=== PATIENT | female | born 1970 | race Caucasian/White ===

== ENCOUNTER 2017-05-15 21:25 | Emergency (ER) | payer OTHER ==
[~2017-05-15] VITALS: Ht 160 cm; Wt 119.8 kg
[~2017-05-15 21:25] MED LIST: BIRTH CONTROL PILL PO; HYCODAN SYRUP480 ML PO; LISINOPRIL10 MG PO; LORATADINE10 M2 PO; PREDNISONE20 MG PO; VENTOLIN HFA18 GM IH; VITAMIN C500 M1 PO; VITAMIN D31000 UNI2 PO; ZITHROMAX Z-PA250 MG PO
[2017-05-16] MEDS ORDERED: NORCO 7.5/321 TABLET PO (00:01)
[2017-05-16] MEDS ORDERED: MOTRIN800 MG PO (00:01)
[2017-05-16] MEDS ORDERED: VALIUM5 MG PO (00:01)
[2017-05-16 00:25] VITALS: BP 142/98
== END 2017-05-16 00:26 | disposition home or self-care (01) ==
LOC: RME 21:25 → EME 21:25 → RME 05-16 00:26
DX: M23.92 Unspecified internal derangement of left knee (principal); M54.5 Low back pain; G89.29 Other chronic pain; S46.919A Strain of unspecified muscle, fascia and tendon at shoulder and upper arm level, unspecified arm, initial encounter; W18.30XA Fall on same level, unspecified, initial encounter; Y93.54 Activity, bowling; Y92.39 Other specified sports and athletic area as the place of occurrence of the external cause; Z87.891 Personal history of nicotine dependence
CPT/HCPCS: 73564; 99281; 99283

== ENCOUNTER 2017-07-15 05:03 | Inpatient (IN) | payer OTHER ==
[~2017-07-15] VITALS: Ht 160 cm; Wt 120.6 kg
[~2017-07-15 05:03] MED LIST changes: -BIRTH CONTROL PILL PO; +MOTRIN800 MG PO; +NORCO 7.5/321 TABLET PO; +TAYTULLA 1 MG-1 EACH PO; +VALIUM5 MG PO
[2017-07-15 05:56] LABS: MCHC 33.7 G/DL (30.0-36.0); MCV 89.1 FL (83-99); MEAN PLAT.VOLUME 9.9 uM^3 (9.5-12.4); PLATELET COUNT 237 K/uL (156-360); RBC DIS.WIDTH-CV 12.1 % (11.8-14.6); RBC DIS.WIDTH-SD 39.3 % (39-53); WHITE BLOOD COUNT 10.7 K/uL (4.1-10.2)
[2017-07-15] MEDS ORDERED: NORCO 5/3251 TABLET PO (06:09)
[2017-07-15] MEDS ORDERED: CLEOCIN300 MG PO (06:09)
[2017-07-15 06:11] LABS: CHLORIDE 108 mEq/L (99-109); POTASSIUM 4.1 mEq/L (3.7-5.4); SODIUM 140 mEq/L (136-147)
[2017-07-15 06:13] LABS: GLUCOSE 106 mg/dL (70-99)
[2017-07-15 06:14] LABS: ANION GAP 9 MEQ/L (2-14)
[2017-07-15 06:17] LABS: GFR ESTIMATE (CALCULATED) > 59 mL/min/
[2017-07-15 06:18] LABS: UREA NITROGEN (BUN) 10 mg/dL (9-23)
[2017-07-15] MEDS ORDERED: IBUPROFEN200 M1 PO (09:18)
[2017-07-15] MEDS ORDERED: TYLENOL EXTRA500 MG PO ×2 (09:19→09:52)
[2017-07-15] MEDS ORDERED: AMLODIPINE-VAL1 EAC2 PO ×2 (09:26→09:51)
[2017-07-15] MEDS ORDERED: FLONASE16 G1 BOTH NARES (09:52)
[2017-07-15 16:31] VITALS: BP 114/70
[2017-07-16 00:26] VITALS: BP 117/68
[2017-07-16 05:53] LABS: MCH 29.4 PG (29.0-34.0); MCHC 32.8 G/DL (30.0-36.0); MCV 89.8 FL (83-99); MEAN PLAT.VOLUME 10.1 uM^3 (9.5-12.4); PLATELET COUNT 218 K/uL (156-360); RBC DIS.WIDTH-CV 12.1 % (11.8-14.6); RED BLOOD COUNT 4.01 M/uL (3.80-5.20); WHITE BLOOD COUNT 9.6 K/uL (4.1-10.2)
[2017-07-16 06:38] LABS: ANION GAP 7 MEQ/L (2-14); CHLORIDE 106 MEQ/L (99-109); GFR ESTIMATE (CALCULATED) > 59 mL/min/; GLUCOSE 89 mg/dL (70-99); POTASSIUM 4.2 MEQ/L (3.7-5.4); SAMPLE HEMOLYSIS CHECK 0; SAMPLE ICTERIC CHECK 0; SAMPLE LIPEMIA CHECK 0; SODIUM 141 MEQ/L (136-147); UREA NITROGEN (BUN) 8 mg/dL (9-23)
[2017-07-16 07:55] VITALS: BP 152/80
[2017-07-16 15:52] VITALS: BP 132/74
[2017-07-16 23:53] VITALS: BP 120/56
[2017-07-17 07:39] VITALS: BP 131/84
[2017-07-17] MEDS ORDERED: ACIDOPHILUS LA1 EACH PO (09:57)
[2017-07-17] MEDS ORDERED: VALSARTAN160 MG PO (10:00)
[2017-07-17] MEDS ORDERED: PEN-VEE K,VEET500 MG PO (10:03)
== END 2017-07-17 12:30 | disposition home or self-care (01) | DRG 603 ==
LOC: EME 05:03 → EDOF 08:34 → 5SOUTH 08:34 → ENRESERV 08:38 → 5SOUTH 14:33
PROVIDERS: Emergency Medicine; Internal Medicine
DX: L03.211 Cellulitis of face (principal); L03.213 Periorbital cellulitis; K04.7 Periapical abscess without sinus; I10 Essential (primary) hypertension; Z87.891 Personal history of nicotine dependence
CPT/HCPCS: 70487; 80048; 83605; 85027; 87040; 99281; 99284; J0295; J2405; J7030; J7050